=== PATIENT | female | born 1930 | race Caucasian/White ===

== ENCOUNTER → 2016-07-11 | Outpatient (CLI) | payer MEDICARE | END | disposition home or self-care (01) | LOC: PCVCIMAG 07:59 | PROVIDERS: ATTEND Internal Medicine Cardiovascular Disease | DX: I65.23 Occlusion and stenosis of bilateral carotid arteries (principal); I25.10 Atherosclerotic heart disease of native coronary artery without angina pectoris; E78.5 Hyperlipidemia, unspecified; R42 Dizziness and giddiness; W19.XXXA Unspecified fall, initial encounter; I05.8 Other rheumatic mitral valve diseases | CPT/HCPCS: 80061; 93005; 93306; 93880; G0463 ==

== ENCOUNTER → 2017-11-18 | Outpatient (CLI) | payer MEDICARE | END | disposition home or self-care (01) | LOC: PCVCIMAG 14:48 | DX: I65.23 Occlusion and stenosis of bilateral carotid arteries (principal); I25.10 Atherosclerotic heart disease of native coronary artery without angina pectoris; I10 Essential (primary) hypertension; Z95.1 Presence of aortocoronary bypass graft | CPT/HCPCS: 93325; 93351; 93880 ==

== ENCOUNTER → 2018-09-03 | Outpatient (CLI) | payer MEDICARE ==
[~2018-09-03] MED LIST: IV NORMAL SALINE 1000ML BAG 1,000 ML ONE
--- NOTE | 2018-09-03 14:38 | PCVCIMAG ---
EXAM: BILATERAL CAROTID DUPLEX INDICATION: Carotid Occlusive Disease. FINDINGS: Doppler Measurements (centimeters per second): RIGHT: Peak CCA-76, Peak ECA-192, Diastolic ICA-14, Peak ICA-150, ICA/CCA Ratio-2.0. LEFT: Peak CCA-78, Peak ECA-93, Diastolic ICA-14, Peak ICA-107, ICA/CCA Ratio-1.4. RIGHT CAROTID: The carotid bulb has moderate plaque. The proximal internal carotid artery shows 50% stenosis. The common carotid artery shows no significant stenosis. The external carotid artery shows 60% stenosis. LEFT CAROTID: The carotid bulb has moderate plaque. The proximal internal carotid artery shows <40% stenosis. The common carotid artery shows no significant stenosis. The external carotid artery shows no significant stenosis. Antegrade flow in both vertebral arteries. IMPRESSION: 50% stenosis of the right internal carotid artery with moderate plaque. <40% stenosis of the left internal carotid artery with moderate plaque. No change since November 2015 study. LOC:[id number]
== END | disposition home or self-care (01) ==
LOC: PCVCIMAG 12:38
PROVIDERS: ATTEND Internal Medicine Cardiovascular Disease
DX: I65.23 Occlusion and stenosis of bilateral carotid arteries (principal); I25.10 Atherosclerotic heart disease of native coronary artery without angina pectoris; I10 Essential (primary) hypertension; E78.00 Pure hypercholesterolemia, unspecified
CPT/HCPCS: 36415; 80061; 93005; 93880; G0463; J7030